=== PATIENT | female | born 1980 ===

== ENCOUNTER 2018-01-21 22:38 | Emergency (ER) | payer OTHER ==
[~2018-01-21] VITALS: Ht 172.7 cm; Wt 69.4 kg
[2018-01-21 22:42] VITALS: TEMP 36.6; Ht 172.7 cm; Wt 69.4 kg
[2018-01-21] MEDS ORDERED: LIDOCAINE 1% BUFFERED INJ 5 ML VIAL INFIL ONE (23:15)
[2018-01-22] MEDS ORDERED: ACETAMINOPHEN 325 MG TAB PO STA (00:27)
[2018-01-22 00:31] VITALS: BP 122/71; PULSE 82; O2SAT 96
--- NOTE | 2018-01-22 02:46 | EMERGENCY ROOM VISIT NOTE ---
ED Visit Note First contact with patient: 22:45 Chief Complaint: I cut my chin. History of Present Illness: Ms. Butterfield is a 38-year-old female who ambulates into the ED accompanied by female friend complaining of a chin laceration. Patient reports approximately 1 hour ago she was moving a compost container. She reports the container tripped over and she fell onto the compost container and hit her chin over the plastic edge of the container and sustained a laceration. She reports she control bleeding prior to arrival at the hospital. Patient reports at the time of the injury she had no loss of consciousness and has not had any signs of head injury. She has been putting ice over the area of her laceration for pain and swelling and currently she reports she is pain- free. She denies headache, dizziness, lightheadedness, facial pain, dental pain, difficulty speaking, neck pain, nausea, vomiting Review of Systems: As noted above in history of present illness. 8 body systems were reviewed and found to be negative as noted above. Past Medical History: Patient denies Current Medications: Patient denies. Allergies to Medications: Patient denies. Social History: Patient is currently employed; she feels safe in her home environment; she denies tobacco Tetanus Immunization Status: Patient reports up-to-date. Physical Examination: Vital Signs: Date Time Temp Pulse Resp B/P (MAP) Pulse Ox O2 Delivery O2 Flow Rate FiO2 01/22/18 00:31 82 18 122/71 96 Room Air 01/21/18 22:42 36.6 83 18 119/75 94 Room Air GENERAL: 38-year-old female in mild distress due to symptoms, nontoxic-appearing , afebrile and hemodynamically stable. NEUROLOGICAL: Awake, alert and oriented to person, place and time. Answering questions appropriately and following commands. Normal gait. Good hand eye coordination. SKIN: Warm, dry and pink. Face: Over the anterior inferior aspect of the chin patient has a 2.6 cm full-thickness laceration. No active bleeding. Also in the patient's mouth patient has 2 3-4 mm lacerations within the buccal mucosa associated with the frontal incisors. Minimal bleeding is noted and there is no gaping of the wounds. HEENT: Soft tissues injuries as noted above of the face. No gross facial bony deformities, tenderness or ecchymosis. Soft tissue injuries as noted above. Oral cavity moist and pink. Airway is patent. Soft tissue injuries as noted above of the mouth. No dental tenderness or deformities. Airway is patent. Speech is normal and clear. ED Course: Patient is assessed as noted above. Patient's medication list was reviewed. Patient was offered pain medication initially and refused. Wound Repair: Complexity: Basic Verbal consent was obtained after the risks and benefits were explained. The skin was prepped with betadine and a sterile field set. Wound edges of the wound was anesthetized with 2.4 ml buffered 1% lidocaine. The wound was explored for foreign bodies and none found. Copious irrigation was performed using sterile saline. With direct pressure the bleeding subsided. Debridement was not performed. The wound edges were approximated using 6-0 Ethilon with 8 simple interrupted sutures. Hemostasis and excellent approximation was achieved. Antibacterial ointment and a sterile dressing applied. No complications and the patient tolerated the procedure well. Prior to departure patient reports the numbness sensation she had in her chin had resolved and she was experiencing a stinging pain that she rated 5/10. Patient was given 650 mg of acetaminophen for pain. Patient was educated about tonight's findings and instructed on her treatment plan; she verbalizes understanding and agreement with this plan. Clinical Impression: Laceration of the of the chin. Mouth lacerations. Status post fall. Disposition: Patient discharged home in stable condition accompanied by female friend. Plan: Comfort measures, wound care, and signs of infection were discussed with the patient. Patient was encouraged to keep her mouth clean with brushing, flossing and gargling with small amounts of salt water for 5 times a day. Patient was educated on signs of head injury. Patient was encouraged to follow-up with personal physician or return ED for signs of infection and/or suture removal in 5-6 days. Patient was encouraged return to the ED for any signs of head injury or any new/ concerning symptoms.
--- NOTE | 2018-01-27 10:48 | EDITING REQUIRED CODING QUERY ---
LACERATION To promote full compliance with coding requirements relating to patient care, physician participation is requested in all cases of precinct captain uncertainty. Please assist us with the question(s) below: Was the repair procedure done on the laceration of the chin? The procedure was performed on the external chin laceration. Was any repair performed to the laceration of the buccal mucosa? The buccal mucosa laceration did not have a surgical repair Thank you Jannette Lomas
== END 2018-01-22 00:33 | disposition home or self-care (01) ==
LOC: C.EDB 22:40 → C.EDC 01-22 00:33
DX: S01.81XA Laceration without foreign body of other part of head, initial encounter (principal); S01.512A Laceration without foreign body of oral cavity, initial encounter; W19.XXXA Unspecified fall, initial encounter

== ENCOUNTER 2019-11-23 07:49 | Inpatient (IN) ==
[2019-11-23] MEDS ORDERED: OXYTOCIN 30 UNITS/500 ML BAG IV PRN ×3 (08:18→15:22)
--- NOTE | 2019-11-23 08:27 | History & Physical Report ---
Date of Service November 23, 2019 Assessment & Plan (1) : Patient is a 39 yo here for IOL for post dates -GBS -, Bloodtype O+ -Pitocin for contraction augmentation -Patient desires epidural; will consult anaesthesia when contractions become painful -Anticipate vaginal delivery. (2) Supervision of elderly multigravida: History of Present Illness Chief Complaint: IOL Primary Care Provider: NO PCP Patient is a 39 year old dating 40W 3D by certain LMP 02/13/19 presenting today for IOL due to post dates. Patient had transfer of care from [place] and was seen initially at 14 weeks. She had stated at that time there were concerns of Downs and Trisomy 18. Patient was seen by MFM at [facility] and was noted to have a normal karyotype 46XY. She has been attending OB appointments appropriately and has only been taken a and iron supplementation. She states that she feels baby move, but does not feel any contractions. She has not had any fluid loss. She has had minimal vaginal blood loss 2 days ago, but notes she had her cervix checked 2 days prior to that. Labs -Blood type: O+ -Antibody screen: Negative -Hgb: 12.6 -Hct: 36.2 -Wbc: 12.19 -Plt: 233 -Rubella: Immune -VDRL/RPR: Nonreactive -Gonorrhea: Pending -Chlamydia: Pending -HIV: Negative -HbSAg: Negative -GBS: Negative -Glucose tolerance x2: 1hr GTT glucose 91 -Cell Free DNA Screening: Normal Allergies Allergy/AdvReac Type Severity Reaction Status Date / Time No Known Allergies Allergy Verified 11/19/19 12:27 Home Medications Home Medications Medication Instructions Recorded Confirmed Type prenat.vits,lisa,[id number] 1 tab PO DAILY 05/22/19 11/23/19 History ferrous sulfate 325 mg PO DAILY 08/04/19 11/23/19 History Patient History Medical History Abnormal first trimester screen No pertinent family history No pertinent past medical history Surgical History S/P wisdom tooth extraction Family History Other No pertinent family history Social History (Reviewed 11/23/19 @ 08:27 by KIKO Valentino Preferred Language: Croatian Communication Ability: Effective Numerical Control Machine Operator Required: No Beliefs That Will Affect Care: None marital status: marital status details: Colin Prather (46) Current Living Situation: Spouse Current Living Situation Comment: Lives with and daughter. current occupational status: employed current occupation: Religious Education Teacher Other Information That Helps Us Care for You: No Feels Safe at Home: Yes Safety Concerns: Feels Safe At This Time Smoking Status: Never smoker Hx Alcohol Use: No Hx Substance Use: No Immunizations: flu injection on 08/04/19 OB History Prior induced vaginal delivery CNS History Noncontributory Review of Systems no fever, no chills and no weakness no worsening vision no dizziness no cough and no dyspnea no chest pain, no dyspnea and no palpitations no abdominal pain, no nausea, no vomiting, no constipation and no diarrhea/loose stools no dysuria and no hematuria no headache(s) Physical Exam Constitutional: WD/WN, vitals as above Eyes: PERRL, conjunctivae normal, anicteric sclerae ENMT: external ear and nose normal, oropharynx normal Neck: normal visual inspection Respiratory: normal respiratory effort, lungs clear to auscultation Cardiovascular: Rate/Rhythm: regular rate and regular rhythm Heart Sounds: normal S1 and normal S2; no murmur Extremities: no calf tenderness and no edema Gastrointestinal (Abdomen): Inspection/Auscultation: + abdomen distended (Gravid) and normal bowel sounds Percussion/Palpation: abdomen soft; abdomen nontender No Contractions palpable. Psychiatric: A+Ox3, euthymic affect Genitourinary: OB Exam Abdomen: + fundal height (Term), + heart tones, + vertex and + estimated weight (7.5 lbs) Manual OB Exam: + cervical dilation 3 cm, + cervical effacement 70% (75%) and + station -2 OB Exam Monitor Tracing: + category I Cervical exam conducted by Dr. Bean Results & Data Vital Signs (Past 12 Hours) Vital Signs Pulse BP 11/23/19 08:06 81 110/75 Code Status & VTE Plan VTE Prophylaxis Plan VTE Prophylaxis will be ordered: No Reason for no VTE drug order: Contraindicated Monitoring External Monitor Category 1, FHR 138 bpm Supervising Physician Co-Signing Physician Notes Patient seen and evaluated and agree with the above findings and plan. Coding Level of Care Code None Diagnoses Z34.90 Supervision of elderly multigravida O09.529 Resident Activity Tracking Resident Involvement: Resident Care Provided Care Provided: OB Delivery
[2019-11-23 08:43] LABS: Hematocrit (blood only) 36.2 % (37-47); Hemoglobin 12.6 g/dL (12.0-16.0); Mean Corpuscular Hemoglobin 32.1 pg (25-34); Mean Corpuscular Volume 92.3 fL (80-100); Platelet Count 233 K/uL (130-400); RDW Coefficient of Variation 13.5 % (11.5-14.5); RDW Standard Deviation 44.6 fL (36.4-46.3); Red Blood Count 3.92 M/uL (4.2-5.4); White Blood Count 12.19 K/uL (4.8-10.8)
[2019-11-23 08:59] LABS: Mean Corpuscular Hgb Conc 34.8 g/dL (32-36)
[2019-11-23] MEDS: LACTATED RINGER'S 1,000 ML IV PRN ×2 (08:59→13:10)
[2019-11-23] MEDS ORDERED: fentaNYL citrate 100 MCG/2 ML VIAL ONE (14:09)
[2019-11-23] MEDS ORDERED: ePHEDrine sulfate 50 MG/ML AMP ONE (14:09)
[2019-11-23] MEDS ORDERED: BUPIVACAINE 0.25% 30 ML VIAL ONE (14:09)
[2019-11-23] MEDS ORDERED: fentaNYL 2MCG/ML ROPIV 1.25MG/ML 100 ML BAG EPI ONE (14:09)
--- NOTE | 2019-11-23 14:39 | Anesthesiology Consultation ---
Date of Service November 23, 2019 Assessment & Plan Chart Review Chart Review: Patient NOT seen in Pre Admission Testing and Acceptable Risk for Labor Epidural Consults Requested none ASA ASA2 Proposed Anesthesia Anesthesia Type: Labor Epidural and CSE Risk / Benefits Reviewed With: PT / POA / Parent / Guardian, Accepts Plan and Informed Consent Obtained History Height/Weight Height: 5 ft 8.11 in Weight: 78.472 kg Allergies Allergy/AdvReac Type Severity Reaction Status Date / Time No Known Allergies Allergy Verified 11/19/19 12:27 Medications Home Medications Medication Instructions Recorded Confirmed Last Taken prenat.vits,lisa,[id number] 1 tab PO DAILY 05/22/19 11/23/19 11/22/19 ferrous sulfate 325 mg PO DAILY 08/04/19 11/23/19 11/22/19 Active Medications Generic Name Dose Route Start Last Admin Trade Name Freq PRN Reason Stop Dose Admin Lactated Ringer's 1,000 mls @ 125 mls/hr 11/23/19 08:18 11/23/19 14:00 Lr IV 11/25/19 08:17 999 mls/hr .Q8H PRN Infusion L&D Protocol Protocol Oxytocin 30 units in 500 mls @ 0 mls/hr 11/23/19 08:55 11/23/19 13:40 Pitocin IV 11/25/19 08:54 0.12 units/hr .Q0M PRN 2 mls/hr Labor Induction/Augmentation Titration Protocol 0 UNITS/HR NPO Date Last Intake of Fluids: 11/23/19 Time Last Intake of Fluids: 13:00 Date Last Intake of Solids: 11/23/19 Time Last Intake of Solids: 07:00 Past Medical History Medical History Abnormal first trimester screen No pertinent family history No pertinent past medical history Exercise / Class Metabolic Activity II 4-5 Yardwork/Stairs/Walk up hill Past Family History Family History Other No pertinent family history Past Surgical History Surgical History S/P wisdom tooth extraction Past Anesthesia History No Hx of Anesthesia Complications and No Family Hx of Anesthesia Complications History of PONV No Hx of PONV and No Hx of Motion Sickness Social History Smoking Status: Never smoker Hx Alcohol Use: No Hx Substance Use: No Review of Systems no chest pain or sob Physical Exam Vital Signs Last Vital Signs Temp 36.8 C 11/23/19 12:57 Pulse 81 11/23/19 14:36 Resp 18 11/23/19 12:57 BP 117/62 11/23/19 14:03 Pulse Ox 99 11/23/19 14:36 ENMT Mouth: no TMJ abnormality Thyromental Distance: > or= 3.5 Finger Breadths Mallampati Class: II Neck normal visual inspection Respiratory normal respiratory effort Auscultation: lungs clear to auscultation bilaterally Cardiovascular Rate/Rhythm: regular rate and regular rhythm Musculoskeletal Spine: normal cervical ROM Neurologic moves all extremities Psychiatric Orientation: alert and oriented x 3 Testing Laboratory Results 11/23/19 08:26
[2019-11-23] MEDS ORDERED: IBUPROFEN 600 MG TAB PO PRN (15:07)
[2019-11-23] MEDS ORDERED: ACETAMINOPHEN 325 MG TAB PO PRN (15:07)
[2019-11-23] MEDS ORDERED: SUPERCREAM 0.870% 15 GM JAR EXT PRN (15:22)
[2019-11-23] MEDS ORDERED: BENZOCAINE 20% AER SPR 82.5 GM CAN EXT PRN (15:22)
[2019-11-23] MEDS ORDERED: HYDROCORTISONE ACETATE 25 MG SUPP PR PRN (15:22)
[2019-11-23] MEDS ORDERED: DIPHTHERIA/TETANUS/PERTUSSIS 0.5 ML SYR/VIAL IM ONE (15:22)
[2019-11-23] MEDS ORDERED: bisacodyL 10 MG SUPP PR PRN (15:22)
[2019-11-23] MEDS: DOCUSATE SODIUM 100 MG CAP PO SCH (20:24)
[2019-11-24 06:11] LABS: Hemoglobin 12.3 g/dL (12.0-16.0); Mean Corpuscular Hemoglobin 31.6 pg (25-34); Mean Corpuscular Hgb Conc 34.2 g/dL (32-36); Mean Corpuscular Volume 92.5 fL (80-100); Mean Platelet Volume 10.1 fL (7.4-10.4); Platelet Count 231 K/uL (130-400); RDW Coefficient of Variation 13.4 % (11.5-14.5); RDW Standard Deviation 45.2 fL (36.4-46.3); Red Blood Count 3.89 M/uL (4.2-5.4); White Blood Count 16.88 K/uL (4.8-10.8)
--- NOTE | 2019-11-24 06:25 | Obstetrical Progress Note ---
Date of Service <Smooth Lambert DO - Last Filed: 11/24/19 06:25> November 24, 2019 Assessment & Plan <Smooth Lambert DO - Last Filed: 11/24/19 06:25> (1) : -PPD#1 -Vitals reviewed, WNL (Tmax 36.7) - GBS -, Blood Type O+ - Clinically stable. - Feels well today. Eating well, voiding well, ambulating well. - Pain well controlled. - Routine post- care - After discharge will have [address] Bean Day #:: 1 Subjective <Smooth Lambert DO - Last Filed: 11/24/19 06:25> Ambulation: ambulating normally Voiding: no voiding problems Passing Gas:: Yes Diet Tolerance:: regular diet Lochia:: Moderate Feeding Type:: breast feeding Current Pain Level(1-10): 1 (not requiring analgesics) Patient is a 39 PPD#1. Patient states that she is feeling well today and that her pain is well controlled. She has no other complaints at this time. Constitutional: no fever and no chills Respiratory: no cough, no dyspnea and no wheezing Cardiovascular: no chest pain, no dyspnea, no palpitations, no edema and no calf pain Breast: no breast pain Gastrointestinal: no abdominal pain, no nausea and no vomiting Genitourinary (female): no dysuria and no difficulty urinating Neurologic: no headache(s) Physical Exam <DO Sayra Valentino Last Filed: 11/24/19 06:25> Constitutional WD/WN, vitals as above Respiratory normal respiratory effort, lungs clear to auscultation Cardiovascular Rate/Rhythm: regular rate and regular rhythm Heart Sounds: normal S1 and normal S2; no click, no gallop, no murmur and no cardiac rub Extremities: no calf tenderness and no edema Gastrointestinal (Abdomen) Inspection/Auscultation: abdomen normal to inspection and normal bowel sounds Percussion/Palpation: abdomen soft; abdomen nontender Genitourinary OB Exam Abdomen: + fundal height Fundus: + firm and + relation to umbilicus (1cm below); not tender and not boggy Results & Data <DO Sayra Valentino Last Filed: 11/24/19 06:25> Vital Signs (Past 12 Hours) Vital Signs Temp Pulse Resp BP Pulse Ox 02/18/20 04:30 36.7 C 64 18 106/64 11/23/19 23:45 36.7 C 62 18 11/23/19 20:01 36.6 C 50 L 18 95/60 L 95 <Donaldo Bean MD - Last Filed: 11/24/19 08:24> Co-Signing Physician Notes Patient seen and evaluated and agree with the above findings and plan. Stable for discharge this afternoon. Resident Activity Tracking <Smooth Lambert DO - Last Filed: 11/24/19 06:25> Resident Involvement: Resident Care Provided Care Provided: OB Delivery
[2019-11-24] MEDS ORDERED: PRENATAL VITAMIN 1 TAB PO SCH (08:00)
[2019-11-24] MEDS: DOCUSATE SODIUM 100 MG CAP PO SCH (09:10)
[2019-11-24 12:25] LABS: Chlamydia Trach RNA NOT DETECTED (NOT DETECTED); GC (Neis gonorrhoeae) RNA NOT DETECTED (NOT DETECTED)
[2019-11-24] MEDS ORDERED: bisacodyL 5 MG TABEC PO SCH (20:00)
--- NOTE | 2019-12-09 16:10 | Delivery Summary ---
DATE OF OPERATION: 11/23/2019 PROCEDURE: Normal spontaneous vaginal delivery. SURGEON: Donaldo Bean MD. PREOPERATIVE DIAGNOSES: 1. Single intrauterine at term. 2. Induction of labor for postdates. POSTOPERATIVE DIAGNOSES: 1. Single intrauterine at term. 2. Induction of labor for postdates. 3. Status post delivery. ESTIMATED BLOOD LOSS: 200 mL. DRAINS: None. FLUIDS: Continuous lactated Ringer. URINE OUTPUT: Not measured. COMPLICATIONS: None. FINDINGS: Viable male with weight of 7 pounds 5-1/2 ounces and Apgars of 8 and 9 at one and five minutes, respectively. DESCRIPTION OF PROCEDURE: The patient progressed to 10 cm dilated, 100% effaced, +2 station, pushed over intact perineum with an epidural anesthesia and delivered a viable male infant, weight and Apgars as noted above. Head of delivered in DEINS position, restituted into right transverse. Body and shoulders quickly followed. was noted to be vigorous upon delivery and a 1-minute delayed cord clamping was initiated. The cord was then doubly clamped and cut. remained on maternal abdomen and was still noted to be vigorous. Cord blood was then obtained. Attention was then turned to deliver the placenta, which was delivered intact, 3-vessel cord, gentle cord traction. On inspection of the perineum, vagina, and cervix, there was noted to be a first-degree perineal laceration, which was repaired with 3-0 in interrupted stitch. Needle, sponge and instrument counts were correct at the completion of the case. Both mother and were stable in the immediate post-delivery period. I attest to the content of the Intraoperative Record and any orders documented therein. Any exception s are noted below.
== END 2019-11-24 18:25 | disposition home or self-care (01) | DRG 807 ==
LOC: 4S1 07:49 → 4S2 17:40